=== PATIENT | male | born 1990 | race American Indian/Alaskan Native ===

== ENCOUNTER 2017-10-25 19:27 | Emergency (ER) | payer SELFPAY ==
[2017-10-25 19:42] VITALS: BMI 21.8
[2017-10-25 19:47] VITALS: RESP 18
[2017-10-25] MEDS ORDERED: Benzocaine/Menthol (Cepacol) Lozenge MT PRN (20:04)
--- NOTE | 2017-10-25 20:13 | ED PDOC ---
Arrival/HPI - General Chief Complaint: Flu-like Symptoms Time Seen by Provider: 10/25/17 19:50 Historian: Patient - History of Present Illness Narrative History of Present Illness (Text): 10/25/17 20:10 27 year old male, with no significant past medical history, presents to the Emergency department complaining of body ache, fever, sore throat, productive cough with yellow sputum and some streak of blood and headache since . Patient states he recently travelled from [place] on Friday and symptoms began soon after. Patient denies any nausea, vomiting, diarrhea, abdominal pain, chest pain, shortness of breath, sick contact or any other complaints. Patient presents to the Emergency department for medical evaluation. Time/Duration: < week () Symptom Onset: Gradual Symptom Course: Unchanged Quality: Aching Activities at Onset: Light Context: Home Past Medical History - Provider Review Nursing Documentation Reviewed: Yes - Infectious Disease Hx of Infectious Diseases: None - Psychiatric Hx Substance Use: No Family/Social History - Physician Review Nursing Documentation Reviewed: Yes Family/Social History: No Known Family HX Smoking Status: Never Smoked Hx Alcohol Use: No Hx Substance Use: No Allergies/Home Meds Allergies/Adverse Reactions: Allergies shellfish derived Allergy (Verified 10/25/17 19:42) RASH Review of Systems - Physician Review All systems were reviewed & negative as marked: Yes - Review of Systems Constitutional: Fevers Eyes: Normal ENT: Normal, Sore Throat Respiratory: Cough, Sputum. absent: SOB Cardiovascular: Normal. absent: Chest Pain Gastrointestinal: Normal. absent: Abdominal Pain, Diarrhea, Nausea, Vomiting Genitourinary Male: Normal Musculoskeletal: Normal Skin: Normal Neurological: Headache Endocrine: Normal Hemo/Lymphatic: Normal Psychiatric: Normal Physical Exam Vital Signs Reviewed: Yes Vital Signs Temp Pulse Resp BP Pulse Ox 10/25/17 19:52 102.5 F H 10/25/17 19:27 102.5 F H 107 H 18 117/79 98 Temperature: Febrile Blood Pressure: Normal Pulse: Tachycardic Respiratory Rate: Normal Appearance: Positive for: Well-Appearing, Non-Toxic, Comfortable Pain Distress: None Mental Status: Positive for: Alert and Oriented X 3 - Systems Exam Head: Present: Atraumatic, Normocephalic Pupils: Present: PERRL Extroacular Muscles: Present: EOMI Conjunctiva: Present: Normal Mouth: Present: Moist Mucous Membranes Pharnyx: Present: ERYTHEMA (hypopharynx), Other (Normal tonsils). No: EXUDATE, TONSILS ENLARGED Neck: Present: Normal Range of Motion Respiratory/Chest: Present: Clear to Auscultation, Good Air Exchange. No: Respiratory Distress, Accessory Muscle Use Cardiovascular: Present: Regular Rate and Rhythm, Normal S1, S2. No: Murmurs Abdomen: No: Tenderness, Distention, Peritoneal Signs Back: Present: Normal Inspection Upper Extremity: Present: Normal Inspection. No: Cyanosis, Edema Lower Extremity: Present: Normal Inspection. No: Edema Neurological: Present: GCS=15, CN II-XII Intact, Speech Normal Skin: Present: Warm, Dry, Normal Color. No: Rashes Psychiatric: Present: Alert, Oriented x 3, Normal Insight, Normal Concentration Medical Decision Making ED Course and Treatment: 10/25/17 20:16 Impression: 27 year old male presents to the Emergency department for fever, sore throat, headache, body ache and cough. Differential Diagnosis included but are not limited to: URI vs. Influenza vs. pharyngitis Plan: -- VBG -- EKG -- Cepacol -- Toradol -- IV Fluids -- Labs -- Tylenol -- Blood Culture -- Urine Culture -- Chest X-ray -- Reassess and disposition Progress Notes: 10/25/17 20:31 EKG: Ordered, reviewed, and independently interpreted the EKG. Rate : 101 BPM Rhythm : Sinus Tach Interpretation : No ST-segment elevations or depressions, no T-wave inversions, normal intervals. Normal axis. 10/25/17 21:48 Upon reassessment, patient is expresses improved symptoms. Flu test and rapid strep test and cxr were negative. Patient will be discharged home with follow- up instructions. - Lab Interpretations Lab Results: 10/25/17 20:07 10/25/17 20:07 Lab Results 10/25/17 20:45: Grp A Beta Strep Ag Negative 10/25/17 20:36: Urine Color Dark yellow, Urine Appearance Clear, Urine pH 6.5, Ur Specific [place] 1.025, Urine Protein 30 H, Urine Glucose (UA) Negative, Urine Ketones >=80, Urine Blood Trace-intact H, Urine Nitrate Negative, Urine Bilirubin Negative, Urine Urobilinogen >=8.0, Ur Leukocyte Esterase Negative, Urine RBC 0 - 2, Urine WBC 0 - 2, Ur Epithelial Cells 0 - 2, Urine Bacteria Trace 10/25/17 20:07: Influenza Typ A,B (EIA) Negative for flu a/b 10/25/17 20:07: Sodium 135, Chloride 97 L, Potassium 4.0, Carbon Dioxide 26, Anion Gap 16, BUN 14, Creatinine 1.0, Est GFR ( Amer) > 60, Est GFR (Non- Af Amer) > 60, Random Glucose 104, Calcium 8.8, Total Bilirubin 0.9, AST 76 H, ALT 40, Alkaline Phosphatase 59, Total Protein 7.6, Albumin 4.2, Globulin 3.4, Albumin/Globulin Ratio 1.3 10/25/17 20:07: pO2 38, VBG pH 7.37, VBG pCO2 49.0, VBG HCO3 28.3 H, VBG Total CO2 29.8 H, VBG O2 Sat (Calc) 82.2 H, VBG Base Excess 2.2 H, VBG Potassium 3.6, Sodium 133.0, Chloride 97.0 L, Glucose 103, Lactate 1.2, FiO2 21.0, Venous Blood Potassium 3.6 10/25/17 20:07: WBC 6.8, RBC 4.73, Hgb 14.1, Hct 41.6 L, MCV 87.9, MCH 29.8, MCHC 33.9, RDW 12.6, Plt Count 173, MPV 10.0, Gran % 80.8 H, Lymph % (Auto) 8.3 L, [place] % (Auto) 10.8 H, Eos % (Auto) 0.0 L, Baso % (Auto) 0.1, Gran # 5.47, Lymph # (Auto) 0.6 L, [place] # (Auto) 0.7 H, Eos # (Auto) 0.0, Baso # (Auto) 0.01 - RAD Interpretation Radiology Orders: 10/25/17 19:55 CHEST PORTABLE [RAD] Stat - EKG Interpretation Interpreted by ED Physician: Yes Type: 12 lead EKG - Medication Orders Current Medication Orders: Benzocaine/Menthol (Cepacol Sore Throat) 1 bella MT Q2H PRN PRN Reason: Sore Throat Last Admin: 10/25/17 21:19 Dose: 1 bella Sodium Chloride (Sodium Chloride 0.9%) 1,000 mls @ 999 mls/hr IV .Q1H1M STA Stop: 10/25/17 21:59 Last Admin: 10/25/17 21:19 Dose: 999 mls/hr eMAR Start Stop Document 10/25/17 21:19 IT (Rec: 10/25/17 21:19 IT [id number]) Intravenous Solution Start Date 10/25/17 Start Time 21:19 Discontinued Medications Acetaminophen (Tylenol 325mg Tab) 975 mg PO STAT STA Stop: 10/25/17 19:48 Last Admin: 10/25/17 19:52 Dose: 975 mg MAR Pain/Vitals Document 10/25/17 19:52 GMD (Rec: 10/25/17 19:52 GMD [id number]) Pain Reassessment Is This A Pain ReAssessment? No Presence of Pain Presence of Pain Yes Location Pain Location Body Site generalized ache Vitals Temperature (97.6 F-99.6 F) 102.5 F Temperature Source Oral Ketorolac Tromethamine (Toradol) 30 mg IVP STAT STA Stop: 10/25/17 20:00 Last Admin: 10/25/17 21:19 Dose: 30 mg MAR Pain Assessment Document 10/25/17 21:19 IT (Rec: 10/25/17 21:19 IT [id number]) Pain Reassessment Is this a pain reassessment? No Sleep Is patient sleeping during reassessment? No Presence of Pain Presence of Pain Yes Pain Scale Used Pain Scale Used Numeric IVP Administration Document 10/25/17 21:19 IT (Rec: 10/25/17 21:19 IT [id number]) Charges for Administration # of IVP Administrations 1 - Scribe Statement The provider has reviewed the documentation as recorded by the Scribe Melissa Henao. All medical record entries made by the Rupalibtyrone were at my direction and personally dictated by me. I have reviewed the chart and agree that the record accurately reflects my personal performance of the history, physical exam, medical decision making, and the department course for this patient. I have also personally directed, reviewed, and agree with the discharge instructions and disposition. Disposition/Present on Arrival - Present on Arrival Any Indicators Present on Arrival: No History of DVT/PE: No History of Uncontrolled Diabetes: No Urinary Catheter: No History of Decub. Ulcer: No History Surgical Site Infection Following: None - Disposition Have Diagnosis and Disposition been Completed?: Yes Diagnosis: Acute viral syndrome, URI (upper respiratory infection) Disposition: HOME/ ROUTINE Disposition Time: 21:53 Patient Plan: Discharge Patient Problems: Current Active Problems Problem Status Onset Acute viral syndrome Acute URI (upper respiratory infection) Acute Condition: GOOD Discharge Instructions (ExitCare): Viral Upper Respiratory Infection, Adult (DC ) Prescriptions: Dextromethorphan/Benzocaine [Cepacol Sorethroat-Cough Bella] 1 each PO Q4 3 Days # 15 lozenge Ibuprofen [Motrin] 600 mg PO Q6 5 Days #20 tab Referrals: [facility] [place] [facility] [place] - Follow up with primary Neighborhood [facility] at [facility] [Outside] - Follow up with primary Neighborhood [facility] at [place] [Outside] - Follow up with primary Forms: [employer] (Greek)
[2017-10-25 20:19] LABS: VENOUS BLOOD GAS BASE EXCESS 2.2 mmol/L (0.0-2.0); VENOUS BLOOD GAS PO2 38 mm/Hg (30-55); VENOUS BLOOD PH 7.37 (7.32-7.43)
[2017-10-25 20:28] LABS: BASO # 0.01 K/mm3 (0.0-2.0); BASO % 0.1 % (0.0-3.0); GRAN # 5.47 (1.4-6.5); GRAN % 80.8 % (50.0-68.0); HEMOGLOBIN 14.1 g/dL (14.0-18.0); LYMPH # 0.6 (1.2-3.4); LYMPH % 8.3 % (22.0-35.0); MEAN CELL VOLUME 87.9 fl (80.0-105.0); MEAN CORPUSCULAR HEMOGLOBIN 29.8 pg (25.0-35.0); MEAN CORPUSCULAR HGB CONC 33.9 g/dl (31.0-37.0); MONO # 0.7 (0.1-0.6); MONO % 10.8 % (1.0-6.0); RBC 4.73 10^6/uL (3.5-6.1); RED CELL DISTRIBUTION WIDTH 12.6 % (11.5-14.5); WHITE BLOOD COUNT 6.8 10^3/ul (4.5-11.0)
[2017-10-25 20:41] LABS: ALB/GLOB RATIO 1.3 (1.1-1.8); ALBUMIN 4.2 g/dL (3.0-4.8); ALT/SGPT 40 U/L (7-56); AST/SGOT 76 U/L (17-59); BLOOD UREA NITROGEN 14 mg/dL (7-21); CALCIUM 8.8 mg/dL (8.4-10.5); GFR AFRICAN-AMERICAN > 60; GFR NON-AFRICAN AMERICAN > 60
[2017-10-25 20:46] LABS: PH,URINE 6.5 (4.7-8.0); URINE BILIRUBIN NEGATIVE (NEGATIVE); URINE BLOOD TRACE-INTACT (NEGATIVE); URINE GLUCOSE (UA) NEGATIVE (NEGATIVE); URINE LEUKOCYTE ESTERASE NEGATIVE Leu/uL (NEGATIVE); URINE PROTEIN 30 mg/dL (<30 mg/dL); URINE UROBILINOGEN >=8.0 E.U./dL (<1 E.U./dL)
[2017-10-25 20:47] LABS: URINE APPEARANCE CLEAR (CLEAR); URINE COLOR DARK YELLOW (YELLOW)
[2017-10-25 20:53] LABS: URINE BACTERIA TRACE (NEG); URINE EPITHELIAL CELLS 0 - 2 /hpf (0-5); URINE RBC 0 - 2 /hpf (0-2); URINE WBC 0 - 2 /hpf (0-6)
[2017-10-25] MEDS ORDERED: Sodium Chloride 0.9% 1,000 ML IV STA (20:59)
[2017-10-25 22:03] VITALS: BP 122/65; PULSE 79; TEMP 99.5; O2SAT 97
--- NOTE | 2017-10-26 09:08 | CARD ---
APPROVED REPORT EKG Measurement Heart [id number] <Conclusion> Sinus tachycardia RVCD LVH by voltage, could be a normal variant
--- NOTE | 2017-10-26 09:11 | RAD ---
HISTORY: Sepsis Patient COMPARISON: No prior. FINDINGS: LUNGS: No active pulmonary disease. PLEURA: No significant pleural effusion identified, no pneumothorax apparent. CARDIOVASCULAR: Normal. OSSEOUS STRUCTURES: No significant abnormalities. VISUALIZED UPPER ABDOMEN: Normal. OTHER FINDINGS: None. IMPRESSION: No active disease.
== END 2017-10-25 22:16 | disposition home or self-care (01) ==
LOC: ED 19:27
DX: J06.9 Acute upper respiratory infection, unspecified (principal); B34.9 Viral infection, unspecified
CPT/HCPCS: 71045; 80053; 81001; 82803; 85025; 87040; 87070; 87086; 87430; 87804; 93005; 96374; 99284; J1885; J7030